=== PATIENT | male | born 1975 | race Hispanic/Latino ===

== ENCOUNTER → 2021-12-30 | Outpatient (CLI) | payer OTHER | END | disposition home or self-care (01) | LOC: SHCH 10:00 | PROVIDERS: ATTEND Internal Medicine Cardiovascular Disease | DX: I35.8 Other nonrheumatic aortic valve disorders (principal); I25.5 Ischemic cardiomyopathy; I10 Essential (primary) hypertension; E78.5 Hyperlipidemia, unspecified | CPT/HCPCS: 93306 ==

== ENCOUNTER 2025-02-20 14:57 | Observation (INO) | payer BC, OTHER ==
[~2025-02-20] VITALS: Ht 175.3 cm; Wt 103.9 kg
--- NOTE | 2025-02-20 16:21 | HMCIMG ---
CHEST 1VW HISTORY: Chest pain COMPARISON: None FINDINGS: A frontal projection of the chest was obtained. No acute pulmonary infiltrates is seen. The heart is normal in size. Prominent interstitial markings are seen. No evidence of aortic calcification is seen. IMPRESSION: 1. No acute pulmonary infiltrate is seen.
[2025-02-20 16:54] LABS: BASOPHILS # (AUTO) 0.04 K/uL (0.00-0.20); BASOPHILS % (AUTO) 0.4 % (0.0-5.0); EOSINOPHILS # (AUTO) 0.05 K/uL (0.00-0.70); EOSINOPHILS % (AUTO) 0.5 % (0.0-8.0); IMMATURE GRANULOCYTE ABSOLUTE 0.04 K/uL (0-1); LYMPHOCYTES # (AUTO) 2.3 K/uL (1.0-4.8); LYMPHOCYTES % (AUTO) 23.6 % (21.0-51.0); MEAN CORPUSCULAR HGB CONC 34.4 g/dL (32.0-36.0); MEAN CORPUSCULAR VOLUME 90.1 fL (79-99); MONOCYTES # (AUTO) 0.8 K/uL (0.1-1.0); MONOCYTES % (AUTO) 8.2 % (3.0-13.0); NEUTROPHILS # (AUTO) 6.4 K/uL (1.8-7.7); NEUTROPHILS % (AUTO) 66.9 % (40.0-77.0); PLATELET COUNT (AUTO) 263 K/uL (130-400); RED BLOOD CELL COUNT(AUTO) 4.55 MIL/uL (4.50-6.20); RED CELL DISTRIBUTION WIDTH 11.9 % (11.0-15.5); WHITE BLOOD COUNT (AUTO) 9.6 K/uL (4.8-10.8)
[2025-02-20 17:00] LABS: CREATININE 1.2 mg/dL (0.5-1.3); POTASSIUM 3.8 mmol/L (3.5-5.1)
[2025-02-20 17:09] LABS: MAGNESIUM 2.1 mg/dL (1.80-2.40)
--- NOTE | 2025-02-20 18:26 | ERN ---
General Chief Complaint: Chest Pain Stated Complaint: CHEST PAIN Time Seen by MD: 17:15 Time Seen by Midlevel: 17:15 Source: patient History of Present Illness Initial Comments The patient is a 41-year-old male with a past medical history of two myocardial infarctions with the last myocardial infarction happening on August of 2024. The patient reports having intermittent episodes of chest pain described as pressure and hugging sensation. The pain has been intermittent for the last week. He states he feels similar to the previous time she was diagnosed with a an MD. he reports having two stents placed back in August of 2024. He was followed by gold plater Dr. Muir. Denies any other symptoms at this time Allergies: Coded Allergies: Penicillins (Unverified Allergy, Unknown, 02/20/25) Home Meds Reported Medications Losartan Potassium (Losartan Potassium) 50 Mg Tablet, 1 TAB PO DAILY for 30 Days, #30 TAB 0 Refills 02/21/25 Nifedipine (Nifedipine ER) 30 Mg Tablet.er, 1 TAB PO DAILY for 30 Days, #30 TAB 0 Refills 02/21/25 Rosuvastatin Calcium (Rosuvastatin Calcium) 40 Mg Tablet, 1 TAB PO DAILY for high cholesterol for 30 Days, #30 TAB 0 Refills 02/21/25 Prasugrel HCl (Prasugrel HCl) 10 Mg Tablet, 1 TAB PO DAILY for 30 Days, #30 TAB 0 Refills 02/21/25 Nebivolol HCl (Nebivolol HCl) 10 Mg Tablet, 0.5 TAB PO DAILY for 30 Days, #30 TAB 0 Refills 02/21/25 Aspirin (Aspirin EC) 81 Mg Tablet.dr, 1 TAB PO DAILY for 30 Days, #30 TAB 0 Refills 02/21/25 Past Medical History Past Medical History: Diabetes-Type II, High Cholesterol, Hypertension Past Surgical History: None ROS Dictation CONSTITUTIONAL: Negative except for HPI HEAD/FACE: Negative except for HPI EENT: Negative except for HPI RESPIRATORY: Negative except for HPI GASTROINTESTINAL/ABDOMINAL: Negative except for HPI GENITOURINARY: Negative except for HPI MUSCULOSKELETAL: Negative except for HPI INTEGUMENTARY: Negative except for HPI NEUROLOGICAL/PSYCH: Negative except for HPI HEMATOLOGIC/LYMPHATIC: Negative except for HPI All Systems Negative, Except as noted above. 13 point review of systems assessed and all negative except for above. Physical Exam Physical Exam Dictation Vital Signs reviewed General Appearance: Alert, oriented x 3, no acute distress, well developed, nourished. Head and Face: non-traumatic. Eyes: PERRL, pink conjunctivas, eyelid no trauma, anterior chamber with arcus senilis. Ears: Pinnas intact and no signs of trauma or erythema ear canals clear and no discharge TM no erythema Nose: No discharge, no bleeding. Oropharynx: Mouth normal, tongue pink, pharynx clear,no erythema, tonsils no exudates, no abscesses noted, mucous membrane moist Neck: Supple, non-tender, no thyromegaly, no masses, no JVD, no bruits Breast:Deferred Chest:No tenderness, no crepitus, no paradoxical movement, no retractions Lungs:Clear, well-ventilated, symmetric, no rales, no wheezing, no rhonchi, no stridor, good breath sounds bilaterally Heart: Regular rate, regular rhythm, no murmur, no gallops Vascular: no peripheral edema, Abdomen: Soft, positive bowel sounds, nondistended, no guarding, nontender, no rebound, no masses no hepatomegaly, no splenomegaly, no Coyle's sign, no hernias. Rectal: Deferred Genital: Deferred Neurological: Normal speech, motor function intact, sensory function intact Musculoskeletal: Neck nontender, full range of motion, back nontender, full range of motion, Extremities: nontender, full range of motion Skin: Color pink, dry, no turgor, no rash, no lacerations, no abrasions, no contusions. Lymphatic: Deferred Results Laboratory and Microbiology Lab and Micro Result Laboratory Tests Test 02/20/25 16:47 02/20/25 16:49 Urine Opiates Screen NEGATIVE (NEGATIVE) Urine Barbiturates Screen NEGATIVE (NEGATIVE) Urine Phencyclidine Screen NEGATIVE (NEGATIVE) Urine Amphetamines Screen NEGATIVE (NEGATIVE) Urine Benzodiazepines Screen NEGATIVE (NEGATIVE) Urine Cocaine Screen NEGATIVE (NEGATIVE) Urine Marijuana (THC) Screen NEGATIVE (NEGATIVE) White Blood Count 9.6 K/uL (4.8-10.8) Red Blood Count 4.55 MIL/uL (4.50-6.20) Hemoglobin 14.1 g/dL (14.0-18.0) Hematocrit 41.0 % (42-54) L Mean Corpuscular Volume 90.1 fL (79-99) Mean Corpuscular Hemoglobin 31.0 pg (27.0-33.0) Mean Corpuscular Hemoglobin Concent 34.4 g/dL (32.0-36.0) Red Cell Distribution Width 11.9 % (11.0-15.5) Platelet Count 263 K/uL (130-400) Mean Platelet Volume 11.9 fL (7.5-10.5) H Immature Granulocyte % (Auto) 0.4 % (0-1) Neutrophils (%) (Auto) 66.9 % (40.0-77.0) Lymphocytes (%) (Auto) 23.6 % (21.0-51.0) Monocytes (%) (Auto) 8.2 % (3.0-13.0) Eosinophils (%) (Auto) 0.5 % (0.0-8.0) Basophils (%) (Auto) 0.4 % (0.0-5.0) Neutrophils # (Auto) 6.4 K/uL (1.8-7.7) Lymphocytes # (Auto) 2.3 K/uL (1.0-4.8) Monocytes # (Auto) 0.8 K/uL (0.1-1.0) Eosinophils # (Auto) 0.05 K/uL (0.00-0.70) Basophils # (Auto) 0.04 K/uL (0.00-0.20) Absolute Immature Granulocyte (auto 0.04 K/uL (0-1) Nucleated Red Blood Cells 0.0 % (0.0-0.19) Sodium Level 135 mmol/L (136-145) L Potassium Level 3.8 mmol/L (3.5-5.1) Chloride Level 101 mmol/L (101-111) Carbon Dioxide Level 25 mmol/L (21-32) Blood Urea Nitrogen 12 mg/dL (7-18) Creatinine 1.2 mg/dL (0.5-1.3) Glomerular Filtration Rate Calc 75 mL/min (>90) Random Glucose 104 mg/dL (70-105) Total Calcium 8.4 mg/dL (8.5-10.1) L Magnesium Level 2.10 mg/dL (1.80-2.40) Total Creatine Kinase 188 U/L (21-232) Troponin I High Sensitivity 5 ng/L (4-75) B-Type Natriuretic Peptide 10 pg/mL (0-100) Labs Reviewed?: Yes MDM MDM: The patient is a 41-year-old male with a past medical history of two myocardial infarctions with the last myocardial infarction happening on August of 2024. The patient reports having intermittent episodes of chest pain described as pressure and hugging sensation. The pain has been intermittent for the last week. He states he feels similar to the previous time she was diagnosed with a an MD. he reports having two stents placed back in August of 2024. He was followed by gold plater Dr. Muir. Denies any other symptoms at this time. On examination the patient appears anxious. He was still reporting persistent left-sided chest pain. Initial vital signs are stable. CBC and chemistries are stable. Cardiac enzymes are negative however given patient's history and clinical presentation he was at a moderate to high-risk for an acute coronary syndrome. We discussed admission for further observation and management in the patient agrees. Case was discussed with the hospitalist on- call who agrees to admit. Differential diagnosis: ACS, cardiac arrhythmia, dehydration, electrolyte abnormality Rationale: Tests considered and ordered secondary to shared decision making include: Previous outside records reviewed: Old ER visits. Risk of complication and/or morbidity or mortality of patient management: None Medications-Per medication reconciliation Need for hospitalization: Patient does meet criteria for hospitalization. Need for emergency major/minor surgery: No There are no social concerns with this patient. Prescription drug management Prescriptions will include symptomatic care Patient's prior external medical records from other ER visits were reviewed by me as indicated. Prior testing and results from previous visits were reviewed. Prior tests were taken into account with medical decision making and resource utilization, independent historian/historians were used to obtain complete medical history. I independently interpreted the test that were performed, results were reviewed by me and considered findings on radiology if ordered. Medical management and examination interpretation discussions were had by me with other qualified healthcare professionals as indicated for the patient's care. ED Course Orders Procedure Category Date Status Time 12 Lead Ekg Tracing- EKG 02/20/25 Resulted Technical 15:05 Cbc With Differential LAB 02/20/25 Complete 15:12 B-Type Natriuretic LAB 02/20/25 Complete Peptide 15:19 Chest 1vw RAD 02/20/25 Resulted 15:19 Magnesium LAB 02/20/25 Complete 15:19 Creatine Kinase, Total LAB 02/20/25 Complete 15:19 Troponin I High LAB 02/20/25 Complete Sensitivity 15:19 Basic Metabolic Panel LAB 02/20/25 Complete 15:19 Aspirin 325mg Tab PHA 02/20/25 Complete (Aspirin 325mg Tab) 19:00 Vital Signs Date Time Temp Pulse Resp B/P (MAP) Pulse Ox O2 Delivery O2 Flow Rate FiO2 02/20/25 15:32 98.2 77 20 128/83 98 Room Air [facility] [address] [place] [address] IMAGING REPORT Signed PATIENT: KENROY ARGUETA MR#: [id number] : 1975 SEX: M AGE: 49 LOCATION: [facility] ORDER [id number] STATUS: REG ER REPORT#: [id number] SERVICE 1519 REASON: chest pain ORDERING PHYSICIAN: LACIE MAYER DO PROCEDURE: CXR1VW - CHEST 1VW CHEST 1VW HISTORY: Chest pain COMPARISON: None FINDINGS: A frontal projection of the chest was obtained. No acute pulmonary infiltrates is seen. The heart is normal in size. Prominent interstitial markings are seen. No evidence of aortic calcification is seen. IMPRESSION: 1. No acute pulmonary infiltrate is seen. DICTATED BY: MARIEL TAY MD DATE: 02/20/251618 ELECTRONICALLY SIGNED BY: MARIEL TAY MD DATE: 02/20/25 1621 HEART Score Response (Comments) Value History: Moderate suspicion (+1) 1 EKG: Normal 0 Age: 45-65yrs (+1) 1 Risk Factors: 3+ risk factors (+2) 2 Initial Troponin: Normal limit (0) 0 HEART Score Risk: Mod Risk for MACE (4-6) Total 4 DX & DISP Disposition: Inpatient Decision to Admit Date: Feb 20, 2025 Decision to Admit Time: 18:53 Departure Impression: Primary Impression: Chest pain Additional Impression: History of MD (myocardial infarction) Condition: Stable Referrals: JOHANNA MUIR MD (PCP) I have reviewed the case, and I agree with, Diagnosis and Plan I performed the substantive portion of the visit. I have reviewed and personally made and approve the management plan that is documented in the note by myself or the GERARDO. I acknowledge for responsibility for the patient's managem ent plan. MIN NGUYEN Feb 20, 2025 18:26 LACIE MAYER DO Feb 26, 2025 07:38
[2025-02-20] MEDS ORDERED: ASPIRIN 325MG TAB PO ONE (19:00)
--- NOTE | 2025-02-20 19:56 | HP ---
[facility] HISTORY AND PHYSICAL Date of Service: Feb 20, 2025 Time of Service: 19:56 PCP: [place] HISTORY OF PRESENT ILLNESS: This is a 49-year-old male with past medical history of PTSD, hypertension, hyperlipidemia atrial fibrillation,[place] x2 with cardiac stent x4 who presents to the ED for complaints of and off left-sided chest pain started a week ago.Patient states chest pain usually happened while he is in the computer or attending the meeting or conference and just went away on its own and chest pain was described as a hugging sensation on his chest and felt like similar symptoms when he had a heart attack he said.Patient states he had a Heart attack x 2 and he had 2 cardiac stent for each event that he had a heart attack he said.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 Seen and examined patient in the ER awake,alert and ambulatory .Patient denies fever,chills,cough,palpitation and shortness of breath. Patient denies associated symptoms and pain is localized and does not radiate. Latest vital signs temperature 98.2, heart rate 77, blood pressure 128/83 saturation 98% on room air. Labs: CBC unremarkable. Sodium 135, total calcium 8.4 troponin five B10 the rest of the chemistries unremarkable. ECG result revealed sinus rhythm nonspecific intraventricular conduction delay with LAD inferior infarct old heart rate 57 Chest x-ray result is unremarkable. REVIEW OF SYSTEMS CONSTITUTIONAL: Denies fevers, chills, or night sweats. No unintentional weight loss reported. NEUROLOGICAL: Denies headache, amaurosis fugax, motor weakness, sensory deficit, vertigo/spinning sensation, gait abnormalities, or tremors. ENT: No hearing loss, otalgia, otorrhea, rhinitis, rhinorrhea, hoarseness, or sore throat. CARDIOVASCULAR: Complain of chest pain Denies dyspnea on exertion, orthopnea, paroxysmal nocturnal dyspnea, palpitations, life-threatening arrhythmias, claudication. PULMONARY: Denies any shortness of breath, cough, phlegm/sputum, hemoptysis, pleuritic chest pain. SLEEP: Denies morning headaches, daytime somnolence or napping. Denies difficulty falling asleep, staying asleep, waking from sleep. Denies knowledge of snoring. GASTROINTESTINAL: Denies any type of dysphagia to either liquids or solids. Denies nausea, vomiting, pyrosis, early satiety, abdominal pain, diarrhea, constipation, or changes in stool consistency or caliber. Denies coffee-ground emesis, hematemesis, hematochezia, or melanotic stools. GENITOURINARY: Denies frequency, urgency, nocturia, hematuria or incontinence (Storage/Irritative symptoms.) Low urinary stream, straining to void, urinary intermittency or hesitancy, splitting of the voiding stream, terminal dribbling. ENDOCRINOLOGIC: Denies polyuria, polydipsia, polyphagia or heat/cold intolerances. HEMATOLOGIC: Denies thrombophilia/previous clots, or coagulopathy/bleeding disorders. ONCOLOGIC: Denies personal history of malignancy. DERMATOLOGIC: Denies rashes or pruritus. PSYCHIATRIC: Denies any suicidal or homicidal ideation. Denies hallucinations. PAST MEDICAL HISTORY: [Information obtained from patient himself: Hypertension, hyperlipidemia, atrial fibrillation, obesity and PTSD ] PAST SURGICAL HISTORY: [ Cardiac stent x4 ] PAST SOCIAL HISTORY: [ Patient lives with . Patient denies cigarette and recreational drug use. Patient admits to drinking three beers per week ] FAMILY HISTORY: [Noncontributory ] Coded Allergies: Penicillins (Unverified Allergy, Unknown, 02/20/25) PHYSICAL EXAM GENERAL APPEARANCE: The patient is awake, alert, and oriented, in no acute cardiopulmonary distress. NEUROLOGICAL: Cranial nerves II-XII grossly intact. Motor is 5/5 in bilateral upper and lower extremities proximal to distal. No sensory deficits. HEENT: Face is symmetric. Pupils are equal and reactive. Extraocular movements are intact. NECK: Supple. No JVD. No thyromegaly. No submental, submandibular, pre- /postauricular, occipital or supraclavicular lymphadenopathy. CHEST: Normal chest expansion. No Telemetry. LUNGS: Absence of any rales, rhonchi or any wheezing. CARDIOVASCULAR: Regular. S1 and S2 normal. No appreciable rubs, murmurs or gallops. ABDOMEN: Soft, nontender, and nondistended. There is no rebound, voluntary guarding, or rigidity. : Deferred. No Gardner. EXTREMITIES: Non-edematous and not cyanotic. No clubbing. Good capillary r efill. SKIN: No skin breakdown. Vital Sign (Last 24 Hours) 02/20/25 15:32 Temp 98.2 Pulse 77 Resp 20 B/P (MAP) 128/83 Pulse Ox 98 O2 Delivery Room Air LABS: Laboratory: Test 02/20/25 16:49 Range/Units White Blood Count 9.6 4.8-10.8 K/uL Red Blood Count 4.55 4.50-6.20 MIL/uL Hemoglobin 14.1 14.0-18.0 g/dL Hematocrit 41.0 L 42-54 % Mean Corpuscular Volume 90.1 79-99 fL Mean Corpuscular Hemoglobin 31.0 27.0-33.0 pg Mean Corpuscular Hemoglobin Concent 34.4 32.0-36.0 g/dL Red Cell Distribution Width 11.9 11.0-15.5 % Platelet Count 263 130-400 K/uL Mean Platelet Volume 11.9 H 7.5-10.5 fL Immature Granulocyte % (Auto) 0.4 0-1 % Neutrophils (%) (Auto) 66.9 40.0-77.0 % Lymphocytes (%) (Auto) 23.6 21.0-51.0 % Monocytes (%) (Auto) 8.2 3.0-13.0 % Eosinophils (%) (Auto) 0.5 0.0-8.0 % Basophils (%) (Auto) 0.4 0.0-5.0 % Neutrophils # (Auto) 6.4 1.8-7.7 K/uL Lymphocytes # (Auto) 2.3 1.0-4.8 K/uL Monocytes # (Auto) 0.8 0.1-1.0 K/uL Eosinophils # (Auto) 0.05 0.00-0.70 K/uL Basophils # (Auto) 0.04 0.00-0.20 K/uL Absolute Immature Granulocyte (auto 0.04 0-1 K/uL Nucleated Red Blood Cells 0.0 0.0-0.19 % Sodium Level 135 L 136-145 mmol/L Potassium Level 3.8 3.5-5.1 mmol/L Chloride Level 101 101-111 mmol/L Carbon Dioxide Level 25 21-32 mmol/L Blood Urea Nitrogen 12 7-18 mg/dL Creatinine 1.2 0.5-1.3 mg/dL Glomerular Filtration Rate Calc 75 >90 mL/min Random Glucose 104 70-105 mg/dL Total Calcium 8.4 L 8.5-10.1 mg/dL Magnesium Level 2.10 1.80-2.40 mg/dL Total Creatine Kinase 188 21-232 U/L Troponin I High Sensitivity 5 4-75 ng/L B-Type Natriuretic Peptide 10 0-100 pg/mL DIAGNOSTICS / RADIOLOGY: [ ] ASSESSMENT: Acute chest pain rule out ACS POA Coronary artery disease with cardiac stent x4 POA Hypertension POA Hyperlipidemia POA Morbid obesity POA Mild hyponatremia POA History of Atrial fibrillation POA History of [place] x2 POA PLAN: We will admit patient in medical telemetry We will start on heart healthy diet We will start NS @ 75 ml / hr x1 bag and re evaluate We will continue home dose aspirin, Plavix and atorvastatin We will start on Famotidine 20 mg p.o. bid for GI prophylaxis We will replace electrolytes as needed per protocol We will add prn medication for fever,pain,cough , nausea and vomiting We will reconcile home meds once medlist available We will trend troponin q.6 x3 EKG p.r.n. chest pain We will request urine drug screen and follow-up result We will obtain echocardiogram We will seek Cardiology consultation We will request labs in am Further orders to follow depending on above results Case discussed with attending physician and came up with above treatment and plan of care. ADVANCED CARE PLANNING 1. Which of the following were discussed? Hospice Care - No Therapeutic options - Yes Advance Directives - No Other discussions - 2. Discussed with who? Patient and 3. Voluntary nature of this service was explained to the patient? Yes 4. Amount of time spent - __22 5. Reviewed by Physician? (if this service was performed by NPP) Yes Patient seen and examined by me. Agree with note by HOME APPLIANCES MECHANIC SEE ADDITIONAL ORDERS PER CHART DISCUSSED WITH NURSING STAFF ERIKA FISHER NET SOLUTIONS ARCHITECT Feb 20, 2025 19:56
[2025-02-20] MEDS ORDERED: NITROGLYCERIN 0.4 MG SL TAB SL PRN (20:00)
[2025-02-20] MEDS ORDERED: ondanSETRON 4MG INJ IV PRN (20:00)
[2025-02-20] MEDS ORDERED: acetaMINOPHEN 325 MG TAB PO PRN ×2 (20:00)
[2025-02-20] MEDS ORDERED: MAGNESIUM 2GM PREMIX 50ML 50 ML IV PRN (20:30)
[2025-02-20] MEDS ORDERED: PoTASSium chloRIDE 20MEQ/100ML 100 ML IV PRN (20:30)
[2025-02-20] MEDS ORDERED: PoTASSium chl 10% ELIXIR 20MEQ 20 MEQ/15 ML UDCUP PO PRN (20:30)
[2025-02-20] MEDS ORDERED: PoTASSium chloRIDE 20MEQ ER 20 MEQ ERTAB PO PRN (20:30)
--- NOTE | 2025-02-20 20:40 | EKG ---
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
[2025-02-20] MEDS ORDERED: morPHINE 2 MG SYG IVP PRN (21:00)
[2025-02-20 22:01] LABS: AMPHET/METH SCREEN,URINE NEGATIVE (NEGATIVE); BARBITURATE SCREEN, URINE NEGATIVE (NEGATIVE); BENZODIAZEPINES SCREEN,URINE NEGATIVE (NEGATIVE); CANNABINOID SCREEN,URINE NEGATIVE (NEGATIVE); COCAINE SCREEN,URINE NEGATIVE (NEGATIVE); OPIATE SCREEN,URINE NEGATIVE (NEGATIVE); PHENCYCLIDINE SCREEN,URINE NEGATIVE (NEGATIVE)
[2025-02-21] MEDS: 0.9%NACL 1000ML 1,000 ML IV SCH (00:21)
[2025-02-21] MEDS: FAMOTIDINE 20MG TAB PO SCH (00:21)
[2025-02-21] MEDS: atorVAStatin 40 MG TABLET PO SCH (00:21)
--- NOTE | 2025-02-21 06:42 | EKG ---
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
[2025-02-21 07:12] LABS: BASOPHILS # (AUTO) 0.05 K/uL (0.00-0.20); BASOPHILS % (AUTO) 0.8 % (0.0-5.0); EOSINOPHILS # (AUTO) 0.09 K/uL (0.00-0.70); EOSINOPHILS % (AUTO) 1.4 % (0.0-8.0); HEMATOCRIT 38.2 % (42-54); IMMATURE GRANULOCYTE ABSOLUTE 0.02 K/uL (0-1); LYMPHOCYTES # (AUTO) 2.1 K/uL (1.0-4.8); LYMPHOCYTES % (AUTO) 31.8 % (21.0-51.0); MEAN CORPUSCULAR HEMOGLOBIN 31.1 pg (27.0-33.0); MEAN CORPUSCULAR HGB CONC 34.6 g/dL (32.0-36.0); MEAN CORPUSCULAR VOLUME 90.1 fL (79-99); MONOCYTES # (AUTO) 0.6 K/uL (0.1-1.0); MONOCYTES % (AUTO) 8.7 % (3.0-13.0); NEUTROPHILS # (AUTO) 3.8 K/uL (1.8-7.7); PLATELET COUNT (AUTO) 226 K/uL (130-400); RED BLOOD CELL COUNT(AUTO) 4.24 MIL/uL (4.50-6.20); RED CELL DISTRIBUTION WIDTH 11.9 % (11.0-15.5); WHITE BLOOD COUNT (AUTO) 6.6 K/uL (4.8-10.8)
[2025-02-21 07:20] LABS: HEMOGLOBIN A1C 5.5 % (4.0-6.0)
[2025-02-21 07:31] LABS: ALBUMIN 3.4 g/dL (3.5-5.0); BILIRUBIN,TOTAL 0.6 mg/dL (0.2-1.0); CREATININE 0.9 mg/dL (0.5-1.3); MAGNESIUM 2.1 mg/dL (1.80-2.40); POTASSIUM 3.7 mmol/L (3.5-5.1); THYROID STIMULATING HORMONE 1.24 uIU/mL (0.36-3.74); TOTAL PROTEIN, SERUM 6.7 g/dL (6.0-8.3)
[2025-02-21 08:00] VITALS: BP 141/77; PULSE 64; RESP 18; TEMP 97
--- NOTE | 2025-02-21 08:46 | NUR ---
CALLED IN CONSULT FOR DR. Demario GOTTLIEB. SPOKE WITH ALEXA.
[2025-02-21] MEDS: cloPIDOgrel 75MG TAB PO SCH (09:00)
[2025-02-21] MEDS: ASPIRIN 81 MG EC TAB PO SCH (09:13)
[2025-02-21] MEDS ORDERED: ASPI-1443 PO (09:30)
[2025-02-21] MEDS ORDERED: LOSA50TA64 PO (09:30)
[2025-02-21] MEDS ORDERED: NIFE-78 PO (09:30)
[2025-02-21] MEDS ORDERED: ROSU40TA88 PO (09:30)
[2025-02-21] MEDS ORDERED: PRAS10TA9 PO (09:30)
[2025-02-21] MEDS ORDERED: NEBI10TA13 PO (09:30)
[2025-02-21 09:55] LABS: ERYTHROCYTE SEDIMENTATION RATE 9 MM/HR (0-15)
--- NOTE | 2025-02-21 10:07 | DS ---
Discharge Summary Hospital Course Summary: HISTORY OF PRESENT ILLNESS: This is a 49-year-old male with past medical history of PTSD, hypertension, hyperlipidemia atrial fibrillation,[place] x2 with cardiac stent x4 who presents to the ED for complaints of and off left-sided chest pain started a week ago.Patient states chest pain usually happened while he is in the computer or attending the meeting or conference and just went away on its own and chest pain was described as a hugging sensation on his chest and felt like similar symptoms when he had a heart attack he said.Patient states he had a Heart attack x 2 and he had 2 cardiac stent for each event that he had a heart attack he said.Patient reports his corsetier is . Seen and examined patient in the ER awake,alert and ambulatory .Patient denies fever,chills,cough,palpitation and shortness of breath. Patient denies associated symptoms and pain is localized and does not radiate. Latest vital signs temperature 98.2, heart rate 77, blood pressure 128/83 saturation 98% on room air. Labs: CBC unremarkable. Sodium 135, total calcium 8.4 troponin five B10 the rest of the chemistries unremarkable. ECG result revealed sinus rhythm nonspecific intraventricular conduction delay with LAD inferior infarct old heart rate 57 Chest x-ray result is unremarkable. 02/21/2025 patient was seen by corsetier's patient was cleared okay to discharge in follow-up in her clinic in one-week. Troponins were all negative x3. echo was reviewed by Dr. Howard. Patient is hemodynamically is stable. 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 Lee Henry FOLLOW UP APPOINTMENT(S): PCP 2-3 days, corsetier's one-week. PROCEDURES: None IMAGING (S) report attached to summary : Echo pending results was reviewed by corsetier's Dr. Howard MICROBIOLOGY: report attached to summary; none ACTIVITY: Ad carlotta HOME MEDICATIONS remain the same CHANGES ON HOME MEDICATIONS none NEW MEDICATIONS none TEACHING: Emergency instructions: The patient was instructed to present to the nearest Emergency Department or call 911 should their symptoms return or worsen. Home Medications: Reported Medications Losartan Potassium (Losartan Potassium) 50 Mg Tablet, 1 TAB PO DAILY for 30 Day s, #30 TAB 0 Refills 02/21/25 Nifedipine (Nifedipine ER) 30 Mg Tablet.er, 1 TAB PO DAILY for 30 Days, #30 TAB 0 Refills 02/21/25 Rosuvastatin Calcium (Rosuvastatin Calcium) 40 Mg Tablet, 1 TAB PO DAILY for high cholesterol for 30 Days, #30 TAB 0 Refills 02/21/25 Prasugrel HCl (Prasugrel HCl) 10 Mg Tablet, 1 TAB PO DAILY for 30 Days, #30 TAB 0 Refills 02/21/25 Nebivolol HCl (Nebivolol HCl) 10 Mg Tablet, 0.5 TAB PO DAILY for 30 Days, #30 TAB 0 Refills 02/21/25 Aspirin (Aspirin EC) 81 Mg Tablet.dr, 1 TAB PO DAILY for 30 Days, #30 TAB 0 Refills 02/21/25 Continued Medications: Aspirin (Aspirin EC) 81 Mg Tablet.dr 1 TAB PO DAILY for 30 Days, #30 TAB 0 Refills Losartan Potassium (Losartan Potassium) 50 Mg Tablet 1 TAB PO DAILY for 30 Days, #30 TAB 0 Refills Nebivolol HCl (Nebivolol HCl) 10 Mg Tablet 0.5 TAB PO DAILY for 30 Days, #30 TAB 0 Refills Nifedipine (Nifedipine ER) 30 Mg Tablet.er 1 TAB PO DAILY for 30 Days, #30 TAB 0 Refills Prasugrel HCl (Prasugrel HCl) 10 Mg Tablet 1 TAB PO DAILY for 30 Days, #30 TAB 0 Refills Rosuvastatin Calcium (Rosuvastatin Calcium) 40 Mg Tablet 1 TAB PO DAILY for high cholesterol for 30 Days, #30 TAB 0 Refills Time spent arranging discharge: 31-60 minutes ATTESTATION BY PHYSICIAN I have seen and examined the patient. I reviewed the documentation, medical decision making, and treatment plan as noted by the mid-level provider above. I agree with the findings and plan of care. JERRY BOSWELL MD, ELIZABETH NP Feb 21, 2025 10:07
[2025-02-21 10:25] VITALS: O2SAT 97
--- NOTE | 2025-02-21 13:04 | HMCSR ---
APPROVED REPORT EXAM: Two-dimensional and M-mode echocardiogram with Doppler and color Doppler. INDICATION ICD: Chest pain R07.9 2D Dimensions RVDd4.4 cmLVEF(%)57.3 (>50%)LVEF(%, simp.)65 % IVSd0.6 (0.7-1.1cm)FS(%)30 %LA ESV INDEX (BP)27.08 mL/m2 LVDd5.0 (3.8-5.6cm)LA (2D)3.8 (1.6-4.0cm) PWd0.8 (0.7-1.1cm)Ao Root(2D)3.8 (2.0-3.7cm) IVSs1.1 cmLVOT diam2.3 (1.8-2.4cm) LVDs3.5 (2.5-4.0cm) PWs1.1 cm Deformation Strain Apical 4-18.0 % Apical 2-16.0 % Apical 3-18.0 % Global Strain-17.0 % M-Mode Dimensions EPSS0.6 cm LA (MM)4.3 (1.6-4.0cm) Ao Root(MM)3.7 (2.0-3.7cm) Aortic Valve AoV Vmax1.4 m/[place] Peak GR8.2 mmHgLVOT Vmax1.2 m/s AoV VTI0.3 mAo Mean GR4.8 mmHgLVOT VTI0.24 m SHIVAM (VMAX)3.9 cm2AVA (VTI) 3.9 cm2 Mitral Valve MV E Vmax85.7 cm/sDECEL Asur301 ms MV A Vmax77.9 cm/sP 1/2 T63 ms E/A ratio1.1MVA (PHT)3.5 cm2 TDI E/E' Medial8.6E/E' Lateral6.1 Medial E' Peak V10.00 cm/sLateral E' Peak V14.00 cm/s Pulmonary Valve PV Vmax1.3 m/s Left Ventricle The left ventricle is normal size. There is normal LV segmental wall motion. There is normal left gisele tricular wall thickness. LVEF is 60-65%. The left ventricular diastolic function is normal. Right Ventricle The right ventricle is normal size. The right ventricular systolic function is normal. Atria The left atrium size is normal. The right atrium size is normal. Aortic Valve The aortic valve is normal in structure. No aortic regurgitation is present. There is no aortic valvu lar stenosis. Mitral Valve The mitral valve is normal in structure. There is trace mitral valve regurgitation noted. There is no mitral valve stenosis. Tricuspid Valve The tricuspid valve is normal in structure. There is trace tricuspid valve regurgitation noted. Pulmonic Valve Pulmonic valve is not well visualized. There is no pulmonic valvular regurgitation. Great Vessels The aortic root is normal in size. The IVC is normal in size and collapses >50% with inspiration. Pericardium There is no pericardial effusion. Other Information Quality : Adequate Conclusion The left ventricle is normal size. LVEF is 60-65% with normal LV segmental wall motion. The left ventricular diastolic function is normal. The right ventricular systolic function is normal. Both atria are normal in size. No hemodynamically significant valvular abnormalities. There is no pericardial effusion.
--- NOTE | 2025-02-21 13:40 | CONS ---
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: Nader Muir MD Date Patient Seen: Feb 21, 2025 Time of Visit: 0915 Requesting Physician: MARCO ANTONIO Ellington Reason for Consultation: Chest pain History of Present Illness: This is a 49-year-old male with a family history of coronary artery disease, prior tobacco abuse, hypertension, mixed dyslipidemia, Inferior STEMI on 09/28/2021, LHC on 09/29/2021 s/p 3.5 x 20 mm Synergy XD drug-eluting stent to the proximal RCA and a 2.5 x 8 mm Synergy XD drug-eluting stent to the distal posterolateral segment, with PTCA only proximal to the stent for extruded small thrombus, NSTEMI on 08/29/2024, LHC on 08/29/2024 demonstrated widely patent stents in the proximal RCA and distal RCA, s/p a 4.0 x 16 mm [employer] drug-eluting stent to a new lesion in the distal RCA, palpitations with negative 72 hour Holter monitor on 08/17/2022, 2D echocardiogram 08/29/2024 demonstrated mild concentric LVH, mild inferobasal and inferoapical hypokinesis, grade 2 diastolic dysfunction and an LVEF of 55%, and an GENET inhibitor induced cough with lisinopril who presented to the ED with complaints of chest pain in which cardiology has been consulted for recommendations. Over the last week, the patient has been experiencing intermittent chest discomfort described as pressure-like with a 3/10 intensity. There were no know aggravating factors, but yesterday when he attempted antacids and burped, the discomfort subsided. He states with his prior MIs, the pressure-like discomfort was of a greater intensity and accompanied by shortness of breath. He feels his current symptoms are different. Troponin of 5, 6, 7, and 9. EKG demonstrated NSR with a hr of 57bpm, an old inferior UT, and IVCD, no ischemia noted. Limited review of Echocardiogram at bedside demonstrated an intact EF and no wall motion abnormalities. Past Medical History: LHC on 09/29/2021 revealed 100% proximal RCA occlusion and 80% distal RCA stenosis treated with a 3.5 x 20 mm Synergy XD drug-eluting stent to the proximal RCA and a 2.5 x 8 mm Synergy XD drug-eluting stent to the distal posterolateral segment, with PTCA only proximal to the stent for extruded small thrombus with an LVEF of 55% with mild inferobasal hypokinesis, with residual nonobstructive 40% mid LAD stenosis and a normal left circumflex LHC on 08/29/2024 demonstrated widely patent stents in the proximal RCA and distal RCA from 09/29/2021 and a new 99% distal RCA stenosis with small thrombus, s/p successful PTCA and stent with a 4.0 x 16 mm [employer] drug-eluting stent Past Surgical History: None Family History: CAD Social History: The patient lives with his . Habits: The patient denies alcohol use (stopped 2wks ago), tobacco or illicit drug use. Home Meds: Aspirin 81 MG Tablet Chewable 1 tablet Orally Once a day. Losartan Potassium 50 MG Tablet 1 tablet Orally daily. Nebivolol 5mg daily Nifedipine 30mg daily Prasugrel HCl 10 MG Tablet 1 tablet Orally Once a day. Rosuvastatin 40mg daily Current Meds: Review of Systems: CONST: No fever, fatigue, or weight changes. EYES: No recent vision problems. ENT: No congestion, ear pain, or sore throat. C/V: No chest pain, palpitations, or edema. RESP: No cough, congestion, wheezing or shortness of breath. GI: No abdominal pain, nausea, vomiting, constipation, or diarrhea. : No incontinence or dysuria. SKIN: No rash. NEURO: No headache, focal numbness or weakness, dizziness, or seizures. PSYCH: No depression or anxiety. HEME: No abnormal bruising or bleeding. LYMPH: No swollen glands. Physical Examination: GENERAL: No acute distress. HEAD: Normal with no signs of head trauma. EYES: PERRLA, EOMI, conjunctiva and sclera normal. ENT: Hearing grossly intact, normal oropharynx. NECK: Supple without JVD. There is no tenderness, lymphadenopathy, or masses. No thyromegaly. Normal carotid upstrokes without bruits. LUNGS: Clear breath sounds bilaterally. No wheezes, or rhonchi. HEART: Normal rate and rhythm. Normal S1 and S2 without murmurs, gallop or rub. VASC: Peripheral pulses +2 bilaterally. ABD: Bowel sounds normal, soft, nontender, no masses, no organomegaly. No audible bruits. : Not examined LYMPH: No lymphadenopathy noted. EXT: No clubbing, cyanosis or edema. SKIN: No rashes or lesions noted. NEURO: Awake, alert, and oriented x3. No focal sensory or strength deficits noted. Vital Signs (last 8hr) Date Time Temp Pulse Resp B/P (MAP) Pulse Ox O2 Delivery O2 Flow Rate FiO2 02/21/25 10:25 97 Room Air* 0 21 02/21/25 08:00 97.0 64 18 141/77 Room Air 02/21/25 06:37 98.2 75 20 162/88 99 Room Air* 0 21 Laboratory: Hematology Labs: Test 02/21/25 06:41 Range/Units White Blood Count 6.6 # 4.8-10.8 K/uL Red Blood Count 4.24 L 4.50-6.20 MIL/uL Hemoglobin 13.2 L 14.0-18.0 g/dL Hematocrit 38.2 L 42-54 % Mean Corpuscular Volume 90.1 79-99 fL Mean Corpuscular Hemoglobin 31.1 27.0-33.0 pg Mean Corpuscular Hemoglobin Concent 34.6 32.0-36.0 g/dL Red Cell Distribution Width 11.9 11.0-15.5 % Platelet Count 226 130-400 K/uL Mean Platelet Volume 12.5 H 7.5-10.5 fL Immature Granulocyte % (Auto) 0.3 0-1 % Neutrophils (%) (Auto) 57.0 40.0-77.0 % Lymphocytes (%) (Auto) 31.8 21.0-51.0 % Monocytes (%) (Auto) 8.7 3.0-13.0 % Eosinophils (%) (Auto) 1.4 0.0-8.0 % Basophils (%) (Auto) 0.8 0.0-5.0 % Neutrophils # (Auto) 3.8 1.8-7.7 K/uL Lymphocytes # (Auto) 2.1 1.0-4.8 K/uL Monocytes # (Auto) 0.6 0.1-1.0 K/uL Eosinophils # (Auto) 0.09 0.00-0.70 K/uL Basophils # (Auto) 0.05 0.00-0.20 K/uL Absolute Immature Granulocyte (auto 0.02 0-1 K/uL Nucleated Red Blood Cells 0.0 0.0-0.19 % Erythrocyte Sedimentation Rate 9 0-15 MM/HR Chemistry Labs: Test 02/21/25 06:41 02/20/25 16:49 Range/Units Sodium Level 141 136-145 mmol/L Potassium Level 3.7 3.5-5.1 mmol/L Chloride Level 108 101-111 mmol/L Carbon Dioxide Level 26 21-32 mmol/L Blood Urea Nitrogen 9 7-18 mg/dL Creatinine 0.9 0.5-1.3 mg/dL Glomerular Filtration Rate Calc 105 >90 mL/min Random Glucose 104 70-105 mg/dL Hemoglobin A1c 5.5 4.0-6.0 % Estimated Average Glucose (eAG) 111 70-126 mg/dL Total Calcium 8.3 L 8.5-10.1 mg/dL Magnesium Level 2.10 1.80-2.40 mg/dL Total Bilirubin 0.6 0.2-1.0 mg/dL Aspartate Amino Transf (AST/SGOT) 18 10-37 U/L Alanine Aminotransferase (ALT/SGPT) 30 12-78 U/L Alkaline Phosphatase 84 50-136 U/L Total Creatine Kinase 151 21-232 U/L Troponin I High Sensitivity 9 4-75 ng/L Total Protein 6.7 6.0-8.3 g/dL Albumin 3.4 L 3.5-5.0 g/dL Triglycerides Level 68 30-200 mg/dL Cholesterol Level 84 <200 mg/dL LDL Cholesterol 43 0-99 mg/dL HDL Cholesterol 36 29-71 mg/dL Thyroid Stimulating Hormone (TSH) 1.24 0.36-3.74 uIU/mL B-Type Natriuretic Peptide 10 0-100 pg/mL Diagnostics / Radiology: Impression and Plan: Chest pain HTN DLD Prior tobacco abuse Inferior STEMI on 09/28/2021, LHC on 09/29/2021 s/p 3.5 x 20 mm Synergy XD drug- eluting stent to the proximal RCA and a 2.5 x 8 mm Synergy XD drug-eluting stent to the distal posterolateral segment, with PTCA only proximal to the stent for extruded small thrombus NSTEMI on 08/29/2024, LHC on 08/29/2024 demonstrated widely patent stents in the proximal RCA and distal RCA, s/p a 4.0 x 16 mm [employer] drug-eluting stent to a new lesion in the distal RCA Palpitations with negative 72 hour Holter monitor on 08/17/2022 2D echocardiogram 08/29/2024 demonstrated mild concentric LVH, mild inferobasal and inferoapical hypokinesis, grade 2 diastolic dysfunction and an LVEF of 55% GENET inhibitor induced cough with lisinopril Prior tobacco abuse Chest pain Troponin of 5, 6, 7, and 9 and ECG nonischemic. ACS has been ruled out and is currently asymptomatic ECG demonstrated NSR with a hr of 57bpm, an old inferior UT, and IVCD, no ischemia noted Limited review of Echocardiogram at bedside demonstrated an preserved systolic function with no wall motion abnormalities. -No further cardiac work-up, the patient may be discharged home. -Consider outpatient Stress test or CCTA at the [facility] given pt has prior stents Thank you for this consult. Cardiology will sign off at this time. Patient needs close outpatient cardiology follow up with Dr. Muir within 1-2 weeks post discharge JOSE L Akers MD Feb 21, 2025 13:40 GEENA PUCKETT MD Feb 21, 2025 15:03
[2025-02-21] MEDS ORDERED: atorVAStatin 40 MG TABLET PO SCH (21:00)
[2025-02-22] MEDS ORDERED: LoSARTan 50 MG TABLET PO SCH (09:00)
[2025-02-22] MEDS ORDERED: nifeDIPine ER 30 MG TAB PO SCH (09:00)
[2025-02-22] MEDS ORDERED: PRASUGREL HCL 10 MG TABLET PO SCH (09:00)
== END 2025-02-21 10:44 | disposition home or self-care (01) ==
LOC: EDH 14:57 → EDHIP 19:56 → INTOOBSV 19:56 → EDHIP 02-21 10:44
PROVIDERS: ADMIT Internal Medicine; ATTEND Internal Medicine
DX: R07.89 Other chest pain (principal); I25.10 Atherosclerotic heart disease of native coronary artery without angina pectoris; I10 Essential (primary) hypertension; E78.5 Hyperlipidemia, unspecified; E87.1 Hypo-osmolality and hyponatremia; I48.91 Unspecified atrial fibrillation; F43.10 Post-traumatic stress disorder, unspecified; E78.00 Pure hypercholesterolemia, unspecified; E11.9 Type 2 diabetes mellitus without complications; I25.2 Old myocardial infarction; E66.01 Morbid (severe) obesity due to excess calories; Z88.0 Allergy status to penicillin; Z79.02 Long term (current) use of antithrombotics/antiplatelets; Z79.82 Long term (current) use of aspirin; Z87.891 Personal history of nicotine dependence; Z95.5 Presence of coronary angioplasty implant and graft; Z79.899 Other long term (current) drug therapy
CPT/HCPCS: 99285; 71045; 82550 ×2; 83735 ×2; 84484 ×4; 80048; 83880; 80305; 85025 ×2; 36415 ×2; 93005 ×2; 93306; 96361; 96360; 80061; 83036; 84443; 80053; 85651; 93356; G0378; J7030